=== PATIENT | male | born 1975 | race Caucasian/White ===

== ENCOUNTER 2018-11-05 15:29 | Emergency (ER) | payer OTHER, BC ==
[~2018-11-05] VITALS: Ht 180.3 cm; Wt 111.1 kg
[2018-11-05] MEDS ORDERED: ANDROGEL1.25 GM TD (15:40)
--- NOTE | 2018-11-05 18:46 | EKG ---
[facility] [address] [place], [place] [address] Signed Normal sinus rhythm Normal ECG No previous ECGs available Confirmed by QING REYES DO ([id number]) on 11/05/2018 6:45:51 PM Electronically Signed By: QING REYES DO 11/05/18 1846 PATIENT NAME: GABI HOPE TERRENCE Electrocardiogram DATE OF : 77 PHYSICIAN: QING REYES DO REPORT #: [id number] REPORT IS CONFIDENTIAL AND NOT TO BE RELEASED WITHOUT AUTHORIZATION
== END 2018-11-05 17:20 | disposition home or self-care (01) ==
LOC: ED 15:29
DX: R07.89 Other chest pain (principal); Z88.0 Allergy status to penicillin
CPT/HCPCS: 71045; 80053; 84484; 85025; 93005; 93010; 99285-25